=== PATIENT | female | born 1955 | race Caucasian/White ===

== ENCOUNTER 2017-11-09 11:15 | Observation (INO) ==
[2017-11-09] MEDS ORDERED: Aspirin 81 MG TAB.CHEW PO STA (11:45)
--- NOTE | 2017-11-09 11:51 | Emergency Department Note ---
Disposition Clinical Impression: Chest pain, Exertional dyspnea, Leg edema Disposition: Admitted As Inpatient Condition: Fair Time of Disposition: 14:35 General Adult HPI - General Chief complaint: ED Shortness of Breath/Dyspnea Stated complaint: TRACY,Lower extermity edema Time Seen by Provider: 11/09/17 11:29 Source: patient Mode of arrival: ambulatory Limitations: no limitations Nursing Notes Reviewed: Yes Vital Signs Reviewed: Yes - History of Present Illness HPI Narrative: 61-year-old female history of CAD s/p stent, hypertension, hyperlipidemia, current smoker presents an emergency department for difficulty breathing, leg swelling and feeling weak. His symptoms seem to be a worsening over the past 2 days. She attempted to lift her legs up and elevate them but the swelling appears to get worse. She reports dyspnea on exertion. Sometimes she experiences sharp pain in her midsternum that is nonradiating not always associated with exertion. She states the last only a few minutes and goes away. She denies any nausea or vomiting. She denies any recent illness fever or cough. She has not taken any of her medications today. She is seen to be hypertensive systolic 170 here. Takes lisinopril 40 mg daily. Denies history of blood clots. Denies any recent long-distance travel. No history of congestive heart failure that she is aware of. Pain Scale: 8 - Related Data Home Medications Medication Instructions Recorded Confirmed Albuterol Sulfate [Proair Hfa] 2 puff IH Q4-6H PRN 11/09/17 11/09/17 Gabapentin [Neurontin] 800 mg PO TID 11/09/17 11/09/17 Lisinopril [Zestril] 40 mg PO DAILY 11/09/17 11/09/17 OxyCODONE/APAP 5/325 [Percocet 1 tab PO TID PRN 11/09/17 11/09/17 5/325 MG] PARoxetine HCl [Paroxetine HCl] 40 mg PO DAILY 11/09/17 11/09/17 Allergies Allergy/AdvReac Type Severity Reaction Status Date / Time hydrocodone Allergy Severe Itching Verified 03/06/17 17:47 All systems ED: reviewed and negative except as stated. Review of Systems: As Per HPI Constitutional: Denies: fever, chills Cardiovascular: Reports: chest pain Respiratory: Reports: dyspnea. Denies: cough Gastrointestinal: Denies: abdominal pain, nausea, vomiting Genitourinary: Denies: urgency, dysuria Musculoskeletal: Denies: back pain, neck pain Integumentary: Denies: abrasion Neurological: Denies: headache, weakness Past Medical History - Past Medical History Attestation: Yes The following information was validated with the patient. Source: patient Medical history: Reports: cardiomyopathy, coronary artery disease, DVT, fibromyalgia, GERD, hepatitis, hypertension Surgical history: Reports: angioplasty/stent, cholecystectomy, hysterectomy, knee replacement, orthopedic, other, other Psychiatric history: Reports: anxiety, depression - Social History Smoking Status: Current every day smoker Smokeless Tobacco Status: No Alcohol use: Reports: none Drug use: Reports: none Physical Exam - General Limitations: no limitations General appearance: alert, in no apparent distress - Head Head exam: atraumatic, normocephalic, normal inspection - Eye Eye exam: Present: normal appearance, PERRL, EOMI - ENT ENT exam: normal exam, normal oropharynx, mucous membranes moist - Neck Neck exam: Present: normal inspection, full ROM, trachea midline - Chest Chest inspection: Present: normal inspection, symmetric chest wall rise - Respiratory Respiratory exam: Present: normal lung sounds bilaterally. Absent: respiratory distress, wheezes - Cardiovascular Cardiovascular exam: Present: regular rate, normal rhythm, normal heart sounds - Abdominal Exam Abdominal exam: Present: soft, Non-Tender, normal bowel sounds. Absent: tenderness, distention, guarding, rebound, rigidity - Extremities Exam Extremities exam: Present: normal inspection, full ROM, normal capillary refill , pedal edema (bilateral, symmetrical). Absent: tenderness - Neurological Exam Neurological exam: Present: alert, oriented X3 - Psychiatric Psychiatric exam: Present: normal affect, normal mood - Skin Skin exam: Present: warm, dry, intact, normal color. Absent: rash, cyanosis, diaphoresis Course - Reevaluation(s) Reevaluation #1: Patient continues to be slightly hypertensive here. She has not taken any of her whole medication. 40 mg lisinopril ordered. She continues to be slightly short of breath. Chest x-ray did not show any focal pneumonia or consolidation. Her labs or otherwise unremarkable. Given her symptoms of exertional dyspnea and now dyspnea at rest in swelling of the lower extremities will made her for evaluation for CHF exacerbation. Repeat EKG did not show any acute ischemic changes. There continues to be some nonspecific ST-T-wave changes. She would benefit with admission for further evaluation for chest pain and leg edema. Patient is agreeable to this plan. - Consultations Consultation #1: Spoke with on-call hospitalist coreen Ho to admit for chest pain, exertional dyspnea, and leg edema. Will check Albumin for swelling. Time: 14:35 Consultation #2: The hospitalist came down to evaluate the patient. She had notice may be some slight asymmetry of swelling to the lower extremity more so on the left and the right. Patient had initially reported no history of blood clots but now states she at one point may be had a filter as well as a stent placed due to a blood clot that extended from her belly down her groin. The hospitalist is currently requesting a venous Doppler ultrasound as well as the CT of the chest to evaluate for occlusion. A dose of Lovenox has been given prior to these images. Patient denies any G.I. bleed symptoms. The results will be followed up by the hospitalist. Patient will still require admission for her chest pain and leg swelling. Vital Signs Temperature 98.1 F 11/09/17 11:22 Pulse Rate 70 11/09/17 11:22 Respiratory Rate 16 11/09/17 11:22 Blood Pressure 172/95 11/09/17 11:22 O2 Sat by Pulse Oximetry 92 11/09/17 11:22 Temperature 98.7 F 11/09/17 19:03 Pulse Rate 70 11/09/17 19:03 Respiratory Rate 17 11/09/17 19:03 Blood Pressure 167/80 11/09/17 19:03 O2 Sat by Pulse Oximetry 95 11/09/17 19:03 Oxygen Delivery Oxygen Delivery Room Air Medical Decision Making - MDM Narrative Medical decision making narrative: Patient was discussed with my attending physician who agrees with ED management and final disposition. They independently evaluated the patient. Please refer to their attestation to this encounter for additional information. This note was generated by [employer] voice recognition software and as a result grammatical or spelling errors may occur using this program. - Medical Records Medical records reviewed: Yes I reviewed the patient's medical records. - Lab Data Lab results reviewed: Yes I reviewed the patient's lab results. Result diagrams: 11/09/17 11:46 11/09/17 11:46 Lab Results 11/09/17 11/09/17 11/09/17 Range/Units 11:42 11:46 11:46 WBC 8.2 (4.3-11.1) K/mcL RBC 4.20 (3.82-4.97) M/mcL Hgb 13.0 (11.5-15.4) g/dL Hct 38.5 (35.3-44.9) % MCV 91.7 (83.0-100.0) fL MCH 31.0 (28.0-33.3) pg MCHC 33.8 (31.6-35.5) g/dL RDW 12.3 (11.5-14.5) % Plt Count 239 (140-400) K/mcL MPV 11.0 (9.4-12.4) fL Immature Gran % 0.2 (0-4) % Seg Neutrophils % 59.1 % Lymphocytes % 26.7 % Monocytes % 9.6 % Eosinophils % 3.9 % Basophils % 0.5 % Neutrophils # 4.8 (1.6-8.9) K/mcL Lymphocytes # 2.2 (0.6-4.6) K/mcL Monocytes # 0.8 (0.0-1.3) K/mcL Eosinophils # 0.3 (0.0-0.6) K/mcL Basophils # 0.0 (0.0-0.2) K/mcL Sodium 139 (136-145) mEq/L Potassium 4.3 (3.5-5.1) mEq/L Chloride 108 H (98-107) mEq/L Carbon Dioxide 23 (23-29) mEq/L BUN 18 (8-23) mg/dL Creatinine 0.68 (0.60-1.20) mg/dL Est GFR ( Amer) > 60 (> 60) Est GFR (Non-Af Amer) > 60 (> 60) BUN/Creatinine Ratio 26 (6-26) Glucose 87 (70-105) mg/dL Calculated Osmolality 289 (280-300) Calcium 9.0 (8.6-10.3) mg/dL Total Bilirubin 0.3 (0.3-1.0) mg/dL Direct Bilirubin 0.0 (0.0-0.2) mg/dL Indirect Bilirubin 0.3 (0.0-1.2) mg/dL AST 20 (13-39) Units/L ALT 15 (7-52) Units/L Alkaline Phosphatase 82 (34-104) Units/L Troponin I < 0.03 (< 0.04) ng/mL B-Natriuretic Peptide (Less than 100) pg/mL Serum Total Protein 6.8 (6.4-8.9) g/dL Albumin 3.7 (3.5-5.7) g/dL Globulin 3.1 (2.4-3.5) g/dL Albumin/Globulin Ratio 1.2 (1.1-2.2) Lipase 5 L (11-82) Units/L Urine Color Yellow (Yellow) Urine Clarity Clear (Clear) Urine pH 6.0 (5.0-8.0) pH Units Ur Specific [place] 1.011 (1.010-1.025) Urine Protein Negative (Neg-Trace) mg/dL Urine Glucose (UA) Normal (Normal) mg/dL Urine Ketones Negative (Negative) mg/dL Urine Blood Negative (Negative) Urine Nitrite Negative (Negative) Urine Bilirubin Negative (Negative) Urine Urobilinogen Normal (Normal) mg/dL Ur Leukocyte Esterase Negative (Negative) Ur Culture Indicated? NO (NO) 11/09/17 Range/Units 11:46 WBC (4.3-11.1) K/mcL RBC (3.82-4.97) M/mcL Hgb (11.5-15.4) g/dL Hct (35.3-44.9) % MCV (83.0-100.0) fL MCH (28.0-33.3) pg MCHC (31.6-35.5) g/dL RDW (11.5-14.5) % Plt Count (140-400) K/mcL MPV (9.4-12.4) fL Immature Gran % (0-4) % Seg Neutrophils % % Lymphocytes % % Monocytes % % Eosinophils % % Basophils % % Neutrophils # (1.6-8.9) K/mcL Lymphocytes # (0.6-4.6) K/mcL Monocytes # (0.0-1.3) K/mcL Eosinophils # (0.0-0.6) K/mcL Basophils # (0.0-0.2) K/mcL Sodium (136-145) mEq/L Potassium (3.5-5.1) mEq/L Chloride (98-107) mEq/L Carbon Dioxide (23-29) mEq/L BUN (8-23) mg/dL Creatinine (0.60-1.20) mg/dL Est GFR ( Amer) (> 60) Est GFR (Non-Af Amer) (> 60) BUN/Creatinine Ratio (6-26) Glucose (70-105) mg/dL Calculated Osmolality (280-300) Calcium (8.6-10.3) mg/dL Total Bilirubin (0.3-1.0) mg/dL Direct Bilirubin (0.0-0.2) mg/dL Indirect Bilirubin (0.0-1.2) mg/dL AST (13-39) Units/L ALT (7-52) Units/L Alkaline Phosphatase (34-104) Units/L Troponin I (< 0.04) ng/mL B-Natriuretic Peptide 50 (Less than 100) pg/mL Serum Total Protein (6.4-8.9) g/dL Albumin (3.5-5.7) g/dL Globulin (2.4-3.5) g/dL Albumin/Globulin Ratio (1.1-2.2) Lipase (11-82) Units/L Urine Color (Yellow) Urine Clarity (Clear) Urine pH (5.0-8.0) pH Units Ur Specific [place] (1.010-1.025) Urine Protein (Neg-Trace) mg/dL Urine Glucose (UA) (Normal) mg/dL Urine Ketones (Negative) mg/dL Urine Blood (Negative) Urine Nitrite (Negative) Urine Bilirubin (Negative) Urine Urobilinogen (Normal) mg/dL Ur Leukocyte Esterase (Negative) Ur Culture Indicated? (NO) - Radiology Data Radiology results reviewed: Yes I reviewed the patient's radiology results. Chest X-Ray 11/09/17 11:30 IMPRESSION: 1. No active pulmonary disease. D/ / Jian Felix MD / Jian Felix MD Interpreting Provider: Jian Felix MD - EKG Data EKG #1 EKG attestation: Yes I reviewed and interpreted this EKG. EKG results narrative: EKG performed 1140 sinus rhythm 70 beats permanent, normal axis, good R wave progression, nonspecific ST T-wave changes mostly seen in V1 and V2. Intervals within normal limits. Findings appear consistent with prior EKG performed 03/11. No acute ischemic changes. No STEMI Repeat EKG performed 1330 normal sinus rhythm 61 bpm showed consistent nonspecific T-wave changes similar to prior EKG performed earlier. No acute ischemic changes. No dynamic changes at this time. Patient remains chest pain free.
[2017-11-09 12:01] LABS: Basophils % 0.5 %; Eosinophils # 0.3 K/mcL (0.0-0.6); Eosinophils % 3.9 %; Hematocrit 38.5 % (35.3-44.9); Immature Granulocytes % 0.2 % (0-4); Lymphocytes # 2.2 K/mcL (0.6-4.6); Lymphocytes % 26.7 %; Mean Corpuscular HGB Conc 33.8 g/dL (31.6-35.5); Mean Corpuscular Volume 91.7 fL (83.0-100.0); Monocytes # 0.8 K/mcL (0.0-1.3); Monocytes % 9.6 %; Neutrophils # 4.8 K/mcL (1.6-8.9); Platelet Count 239 K/mcL (140-400); Red Cell Distribution Width 12.3 % (11.5-14.5); Segmented Neutrophils % 59.1 %
[2017-11-09 12:18] LABS: Troponin I < 0.03 ng/mL (< 0.04)
[2017-11-09] MEDS: Acetaminophen 325 MG TABLET PO ONE ×2 (13:02→13:07)
[2017-11-09 13:07] LABS: BUN/Creatinine Ratio 26 (6-26); Blood Urea Nitrogen 18 mg/dL (8-23); Carbon Dioxide 23 mEq/L (23-29); Chloride 108 mEq/L (98-107); Glucose 87 mg/dL (70-105); Osmolality,Calculated 289 (280-300); Potassium 4.3 mEq/L (3.5-5.1); Sodium 139 mEq/L (136-145); eGFR For African Americans > 60 (> 60); eGFR For Non-African Americans > 60 (> 60)
[2017-11-09 13:39] LABS: Bilirubin,Urine Negative (Negative); Blood,Urine Negative (Negative); Clarity,Urine Clear (Clear); Color,Urine Yellow (Yellow); Glucose,Urine (UA) Normal (Normal); Ketones,Urine Negative (Negative); Leukocyte Esterase,Urine Negative (Negative); Nitrite,Urine Negative (Negative); Protein,Urine Negative (Neg-Trace); Specific Gravity,Urine 1.011 (1.010-1.025); Urobilinogen,Urine Normal (Normal)
[2017-11-09] MEDS ORDERED: Lisinopril 20 MG TABLET PO SCH (14:15)
--- NOTE | 2017-11-09 14:40 | Emergency Department Note ---
Disposition Clinical Impression: Exertional dyspnea, Leg edema Chest pain Qualifiers: Chest pain type: unspecified Qualified Code(s): R07.9 - Chest pain, unspecified Disposition: Admitted As Inpatient Condition: Fair Referrals: NONE,PCP [Primary Care Provider] - Time of Disposition: 14:00 General Adult HPI - General Chief complaint: ED Shortness of Breath/Dyspnea Stated complaint: TRACY,Lower extermity edema Time Seen by Provider: 11/09/17 11:29 Source: patient Mode of arrival: ambulatory Limitations: no limitations Nursing Notes Reviewed: Yes Vital Signs Reviewed: Yes - History of Present Illness Pain Scale: 8 - Related Data Home Medications Medication Instructions Recorded Confirmed Albuterol Sulfate [Proair Hfa] 2 puff IH Q4-6H PRN 11/09/17 11/09/17 Gabapentin [Neurontin] 800 mg PO TID 11/09/17 11/09/17 Lisinopril [Zestril] 40 mg PO DAILY 11/09/17 11/09/17 OxyCODONE/APAP 5/325 [Percocet 1 tab PO TID PRN 11/09/17 11/09/17 5/325 MG] PARoxetine HCl [Paroxetine HCl] 40 mg PO DAILY 11/09/17 11/09/17 Allergies Allergy/AdvReac Type Severity Reaction Status Date / Time hydrocodone Allergy Severe Itching Verified 03/06/17 17:47 Constitutional: Denies: fever, chills Cardiovascular: Reports: chest pain Respiratory: Reports: dyspnea. Denies: cough Gastrointestinal: Denies: abdominal pain, nausea, vomiting Genitourinary: Denies: urgency, dysuria Musculoskeletal: Denies: back pain, neck pain Integumentary: Denies: abrasion Neurological: Denies: headache, weakness Past Medical History - Past Medical History Medical history: Reports: cardiomyopathy, coronary artery disease, DVT, fibromyalgia, GERD, hepatitis, hypertension Surgical history: Reports: angioplasty/stent, cholecystectomy, hysterectomy, knee replacement, orthopedic, other, other Psychiatric history: Reports: anxiety, depression - Social History Smoking Status: Current every day smoker Smokeless Tobacco Status: No Alcohol use: Reports: none Drug use: Reports: none Physical Exam - General Limitations: no limitations General appearance: alert, in no apparent distress Course Vital Signs Temperature 98.1 F 11/09/17 11:22 Pulse Rate 70 11/09/17 11:22 Respiratory Rate 16 05/21/18 11:22 Blood Pressure 172/95 11/09/17 11:22 O2 Sat by Pulse Oximetry 92 11/09/17 11:22 Temperature 98.1 F 11/09/17 11:30 Pulse Rate 67 11/09/17 13:26 Respiratory Rate 16 11/09/17 13:26 Blood Pressure 174/98 11/09/17 13:26 O2 Sat by Pulse Oximetry 96 11/09/17 13:26 Oxygen Delivery Oxygen Delivery Room Air Medical Decision Making - Lab Data Result diagrams: 11/09/17 11:46 11/09/17 11:46 Lab Results 11/09/17 11/09/17 11/09/17 Range/Units 11:42 11:46 11:46 WBC 8.2 (4.3-11.1) K/mcL RBC 4.20 (3.82-4.97) M/mcL Hgb 13.0 (11.5-15.4) g/dL Hct 38.5 (35.3-44.9) % MCV 91.7 (83.0-100.0) fL MCH 31.0 (28.0-33.3) pg MCHC 33.8 (31.6-35.5) g/dL RDW 12.3 (11.5-14.5) % Plt Count 239 (140-400) K/mcL MPV 11.0 (9.4-12.4) fL Immature Gran % 0.2 (0-4) % Seg Neutrophils % 59.1 % Lymphocytes % 26.7 % Monocytes % 9.6 % Eosinophils % 3.9 % Basophils % 0.5 % Neutrophils # 4.8 (1.6-8.9) K/mcL Lymphocytes # 2.2 (0.6-4.6) K/mcL Monocytes # 0.8 (0.0-1.3) K/mcL Eosinophils # 0.3 (0.0-0.6) K/mcL Basophils # 0.0 (0.0-0.2) K/mcL Sodium 139 (136-145) mEq/L Potassium 4.3 (3.5-5.1) mEq/L Chloride 108 H (98-107) mEq/L Carbon Dioxide 23 (23-29) mEq/L BUN 18 (8-23) mg/dL Creatinine 0.68 (0.60-1.20) mg/dL Est GFR ( Amer) > 60 (> 60) Est GFR (Non-Af Amer) > 60 (> 60) BUN/Creatinine Ratio 26 (6-26) Glucose 87 (70-105) mg/dL Calculated Osmolality 289 (280-300) Calcium 9.0 (8.6-10.3) mg/dL Troponin I < 0.03 (< 0.04) ng/mL B-Natriuretic Peptide (Less than 100) pg/mL Urine Color Yellow (Yellow) Urine Clarity Clear (Clear) Urine pH 6.0 (5.0-8.0) pH Units Ur Specific [place] 1.011 (1.010-1.025) Urine Protein Negative (Neg-Trace) mg/dL Urine Glucose (UA) Normal (Normal) mg/dL Urine Ketones Negative (Negative) mg/dL Urine Blood Negative (Negative) Urine Nitrite Negative (Negative) Urine Bilirubin Negative (Negative) Urine Urobilinogen Normal (Normal) mg/dL Ur Leukocyte Esterase Negative (Negative) Ur Culture Indicated? NO (NO) 11/09/17 Range/Units 11:46 WBC (4.3-11.1) K/mcL RBC (3.82-4.97) M/mcL Hgb (11.5-15.4) g/dL Hct (35.3-44.9) % MCV (83.0-100.0) fL MCH (28.0-33.3) pg MCHC (31.6-35.5) g/dL RDW (11.5-14.5) % Plt Count (140-400) K/mcL MPV (9.4-12.4) fL Immature Gran % (0-4) % Seg Neutrophils % % Lymphocytes % % Monocytes % % Eosinophils % % Basophils % % Neutrophils # (1.6-8.9) K/mcL Lymphocytes # (0.6-4.6) K/mcL Monocytes # (0.0-1.3) K/mcL Eosinophils # (0.0-0.6) K/mcL Basophils # (0.0-0.2) K/mcL Sodium (136-145) mEq/L Potassium (3.5-5.1) mEq/L Chloride (98-107) mEq/L Carbon Dioxide (23-29) mEq/L BUN (8-23) mg/dL Creatinine (0.60-1.20) mg/dL Est GFR ( Amer) (> 60) Est GFR (Non-Af Amer) (> 60) BUN/Creatinine Ratio (6-26) Glucose (70-105) mg/dL Calculated Osmolality (280-300) Calcium (8.6-10.3) mg/dL Troponin I (< 0.04) ng/mL B-Natriuretic Peptide 50 (Less than 100) pg/mL Urine Color (Yellow) Urine Clarity (Clear) Urine pH (5.0-8.0) pH Units Ur Specific [place] (1.010-1.025) Urine Protein (Neg-Trace) mg/dL Urine Glucose (UA) (Normal) mg/dL Urine Ketones (Negative) mg/dL Urine Blood (Negative) Urine Nitrite (Negative) Urine Bilirubin (Negative) Urine Urobilinogen (Normal) mg/dL Ur Leukocyte Esterase (Negative) Ur Culture Indicated? (NO) Attestation Statement - Attestation Attestation: I, Miguel Rosales, examined this patient and my medical decision-making was reviewed with the [employer] MACHINE OPERATOR/PA/Advanced Practice Nurse/Resident Physician. I agree with the documented findings, disposition and treatment plan as described except to the extent set forth below. 61-year-old female presents emergency Department with concerns of difficulty in breathing, chest pain, lower extremity swelling. Patient states she has had increased swelling over the past 3 days of the bilateral lower extremities. Patient denies nausea, vomiting, diarrhea, vaginal bleeding or vaginal discharge. Chest pain is described as a tightness in the center of her chest that does not radiate occurs intermittently over the past few days. Patient denies syncopal event or. She reports increased shortness of breath with exertion over the past few days as well. Had an EKG which showed normal sinus rhythm with a rate of 61 without evidence of ischemia. Initial troponin was negative. Repeat EKG was unchanged. Patient will be admitted to hospitalist for further care and evaluation of her bilateral lower extremity swelling as well as her chest pain.
[2017-11-09] MEDS ORDERED: *HR* Enoxaparin 80 MG/0.8 ML SYRINGE SQ STA (15:19)
[2017-11-09] MEDS ORDERED: Isovue-370 500 ML INFUS..BTL IV ONE (15:23)
[2017-11-09 15:26] LABS: Alanine Aminotransferase 15 Units/L (7-52); Albumin 3.7 g/dL (3.5-5.7); Albumin/Globulin Ratio 1.2 (1.1-2.2); Alkaline Phosphatase 82 Units/L (34-104); Aspartate Amino Transferase 20 Units/L (13-39); Bilirubin,Indirect 0.3 mg/dL (0.0-1.2); Bilirubin,Total 0.3 mg/dL (0.3-1.0); Globulin 3.1 g/dL (2.4-3.5); Lipase 5 Units/L (11-82); Total Protein 6.8 g/dL (6.4-8.9)
--- NOTE | 2017-11-09 16:26 | Internal Med History&Physical ---
Date of Encounter: 11/09/17 Time of Encounter: 04:00 Internal Medicine - H&P: HPI Chief complaint: CP History of present illness: M 61-year-old female history of CAD s/p stent, hypertension, hyperlipidemia, current smoker presents an emergency department for progressive worsening difficulty breathing, leg swelling and eyes weakness . she also complaining of intermittent chest pain, sharp in character , nonradiating , worsening with exertion. She had history history of blood clots and IVC filter placement, when I evaluated the patient in the ER, I notice a slight asymmetry of swelling to the lower extremity more so on the left and the right. A venous Doppler ultrasound as well as the CT of the chest was requested to evaluate for occlusion. A dose of Lovenox has been given prior to these images. The patient was admitted for further Past Med Surg Social Fam HX - Past Medical History Medical history: cardiomyopathy, coronary artery disease, DVT, fibromyalgia, GERD, hepatitis, hypertension Psychiatric history: anxiety, depression - Past Surgical History Surgical History: angioplasty/stent, cholecystectomy, hysterectomy, knee replacement, orthopedic, other, other - Social History Smoking Status: Current every day smoker Smokeless Tobacco Status: No Alcohol use: none Drug use: none Internal Medicine - H&P: Meds Gabapentin [Neurontin] 800 mg PO TID 11/09/17 [History] Lisinopril [Zestril] 40 mg PO DAILY 11/09/17 [History] OxyCODONE/APAP 5/325 [Percocet 5/325 MG] 1 tab PO TID PRN 11/09/17 [History] PARoxetine HCl [Paroxetine HCl] 40 mg PO DAILY 11/09/17 [History] Albuterol Sulfate [Proair Hfa] 2 puff IH Q4-6H PRN #1 [email or web address] 11/11/17 [Rx] Furosemide [Lasix] 20 mg PO DAILY #7 tablet 11/11/17 [Rx] 3 Allergy/AdvReac Type Severity Reaction Status Date / Time hydrocodone Allergy Severe Itching Verified 03/06/17 17:47 All Systems PM: A 10-system review of systems was performed and is negative for pertinent findings except as documented above in the HPI. - Constitutional Constitutional: weakness, no chills, no fever(s), no night sweats - Cardiovascular Cardiovascular ROS IM: chest pain, dyspnea on exertion, edema, no diaphoresis, no dyspnea, no lightheadedness, no palpitations, no syncope - Respiratory Respiratory: no cough, no dyspnea, no wheezing, no excessive phlegm production - Gastrointestinal Gastrointestinal: no abdominal pain, no diarrhea, no hematemesis, no hematochezia, no melena, no nausea, no vomiting - Neurological Neurological ROS: no confusion, no convulsions, no focal weakness, no numbness, no tingling, no tremor(s) - Constitutional Vitals: Temp Pulse Resp BP Pulse Ox 98.1 F 59 18 180/101 96 11/09/17 11:30 11/09/17 13:26 11/09/17 13:26 11/09/17 13:26 11/09/17 13:26 General appearance: Present: A&O X 3 - Head Head exam: Present: atraumatic, normocephalic - Neck Neck exam general surgery: Present: supple, trachea midline. Absent: lymphadenopathy - Respiratory Respiratory exam: Present: CTAB. Absent: accessory muscle use, rales, rhonchi, wheezes - Cardiovascular Cardiovascular exam: Present: RRR, +S1, +S2. Absent: diastolic murmur, gallop, rubs, systolic murmur - GI/Abdominal GI/Abdominal exam: Present: normal bowel sounds, soft, no peritoneal signs. Absent: distended, tenderness - Extremities Exam Extremities exam: Present: pedal edema, warm, radial pulses palpable and symmetrical. Absent: calf tenderness, cyanotic Internal Med - H&P Results - Labs CBC & Chem 7: 11/11/17 07:02 11/11/17 07:02 - Assessment and plan (1) Dyspnea on exertion Status: Acute Assessment and plan: - Chest pain and progressive worsening of lower extremity edema associated to his dyspnea on exertion DD * CHF * PE *CAD *Muskuloskeletal CP - myofascial strain, costochondritis *Pneumonia - no infiltrate on CXR CAD Risk ([place] all that apply): HTN Obesity PVD LDL FMH DM HDL Smoking Age Sedentary PLAN: - Starting lasix - cardiac enzymes x 2 q 8 hr - EKG now and in AM - ASA - O2 by NC to keep SpO2 greater than 92% - UA - CBCD, BMP in AM - Fasting lipids - Tylenol 650 mg PO q 4-6 hr PRN headache - Home meds (check list) - Heparin 5000 U SQ BID - 2D Echo - Cardiology consult (2) Chest pain Status: Acute Assessment and plan: ASSESSMENT: - Chest pain and progressive worsening of lower extremity edema associated to his dyspnea on exertion DD * CHF * PE *CAD *Muskuloskeletal CP - myofascial strain, costochondritis *Pneumonia - no infiltrate on CXR CAD Risk ([place] all that apply): HTN Obesity PVD LDL FMH DM HDL Smoking Age Sedentary PLAN: - Starting lasix - cardiac enzymes x 2 q 8 hr - EKG now and in AM - ASA - O2 by NC to keep SpO2 greater than 92% - UA - CBCD, BMP in AM - Fasting lipids - Tylenol 650 mg PO q 4-6 hr PRN headache - Home meds (check list) - Heparin 5000 U SQ BID - 2D Echo - Cardiology consult Qualifiers: Chest pain type: unspecified Qualified Code(s): R07.9 - Chest pain, unspecified (3) Hypertension Status: Chronic Assessment and plan: uncontrolled, we'll continue home medication, continue to monitor blood pressure while inpatient and adjust regimen accordingly Qualifiers: Hypertension type: essential hypertension Qualified Code(s): I10 - Essential (primary) hypertension (4) Hepatitis C Status: Chronic Qualifiers: Viral hepatitis chronicity: chronic Hepatic coma status: without hepatic coma Qualified Code(s): B18.2 - Chronic viral hepatitis C (5) Neuralgia and neuritis Status: Chronic Assessment and plan: we will continue home medications (6) DVT prophylaxis Status: Acute Assessment and plan: the patient status post therapeutic dose of Lovenox in the ER for possible DVT (7) Leg edema Status: Acute Assessment and plan: left more than the right, rule out DVT, we will obtain Doppler ultrasound, CTA of chest, the patient received therapeutic doses of Lovenox in the ER. - Time Spent With Patient Total time spent is greater than 50% in coordination of care (as documented) at patient's floor/unit and/or counseling patient:
[2017-11-09] MEDS ORDERED: *HR* FentaNYL (PF) 100 MCG/2 ML VIAL IVP ONE (16:35)
[2017-11-09] MEDS ORDERED: Naloxone 0.4 MG/ML INJ IVP PRN (18:19)
[2017-11-09] MEDS: *HR* OxyCODONE/APAP 5/325 TABLET PO PRN (18:20)
[2017-11-09] MEDS ORDERED: traZODone 50 MG TABLET PO ONE (19:57)
[2017-11-09] MEDS: Gabapentin 400 MG CAPSULE PO SCH (21:05)
[2017-11-10] MEDS: *HR* OxyCODONE/APAP 5/325 TABLET PO PRN ×4 (03:53→20:40)
[2017-11-10] MEDS: Ondansetron 4 MG/2 ML VIAL IVP PRN ×3 (03:54→17:33)
[2017-11-10] MEDS: *HR* Heparin 5,000 UNIT/ML VIAL SQ SCH ×2 (05:25→17:33)
[2017-11-10 08:10] LABS: Basophils % 0.6 %; Eosinophils # 0.3 K/mcL (0.0-0.6); Hematocrit 40.4 % (35.3-44.9); Hemoglobin 13.3 g/dL (11.5-15.4); Immature Granulocytes % 0.2 % (0-4); Lymphocytes # 2.1 K/mcL (0.6-4.6); Lymphocytes % 40.2 %; Mean Corpuscular HGB Conc 32.9 g/dL (31.6-35.5); Mean Corpuscular Hemoglobin 29.5 pg (28.0-33.3); Mean Corpuscular Volume 89.6 fL (83.0-100.0); Mean Platelet Volume 11.4 fL (9.4-12.4); Monocytes # 0.6 K/mcL (0.0-1.3); Monocytes % 10.7 %; Neutrophils # 2.3 K/mcL (1.6-8.9); Platelet Count 213 K/mcL (140-400); Red Blood Count 4.51 M/mcL (3.82-4.97); Red Cell Distribution Width 12.3 % (11.5-14.5); Segmented Neutrophils % 42.3 %
[2017-11-10 08:18] LABS: Prothrombin Time 10.9 Seconds (9.4-12.1)
[2017-11-10 08:30] LABS: Alanine Aminotransferase 16 Units/L (7-52); Albumin 3.5 g/dL (3.5-5.7); Albumin/Globulin Ratio 1.1 (1.1-2.2); Alkaline Phosphatase 72 Units/L (34-104); Aspartate Amino Transferase 25 Units/L (13-39); BUN/Creatinine Ratio 23 (6-26); Bilirubin,Total 0.4 mg/dL (0.3-1.0); Blood Urea Nitrogen 16 mg/dL (8-23); Calcium 9.1 mg/dL (8.6-10.3); Carbon Dioxide 22 mEq/L (23-29); Chloride 109 mEq/L (98-107); Chol/HDL Ratio 2.2 (0-4.9); Cholesterol 148 mg/dL (< 200); Globulin 3.2 g/dL (2.4-3.5); Glucose 84 mg/dL (70-105); HDL Cholesterol 68 mg/dL (40-59); LDL Cholesterol,Calculated 61 mg/dL (0-99); Magnesium 1.9 mg/dL (1.6-2.6); Osmolality,Calculated 286 (280-300); Potassium 4.2 mEq/L (3.5-5.1); Sodium 138 mEq/L (136-145); Total Protein 6.7 g/dL (6.4-8.9); Triglycerides 95 mg/dL (< 150); eGFR For African Americans > 60 (> 60); eGFR For Non-African Americans > 60 (> 60)
[2017-11-10] MEDS: Lisinopril 20 MG TABLET PO SCH (08:42)
[2017-11-10] MEDS: Gabapentin 400 MG CAPSULE PO SCH ×3 (08:43→20:39)
[2017-11-10] MEDS: Furosemide 40 MG/4 ML VIAL IVP SCH ×2 (08:43→17:33)
[2017-11-10 09:19] LABS: Troponin I < 0.03 ng/mL (< 0.04)
--- NOTE | 2017-11-10 09:36 | Electrocardiograph Report ---
[facility] [employer] Test Date: 2017-11-09 Pat Name: Cesia Ridley Department: 102 Room: 3B13 Gender: F Content Specialist: Valeria : 1955 Requested By: Rashid Carson Order Number: [id number] Reading MD: John Paul Campoverde Measurements Intervals [place] Rate: 70 P: 54 [place]: 132 QRS: 47 QRSD: 87 T: 68 QT: 412 QTc: 432 Interpretive Statements SINUS RHYTHM SEPTAL MYOCARDIAL INFARCTION [40+ ms Q WAVE IN V1/V2], OF INDETERMINATE AGE Electronically Signed On 11-10-2017 7:18:46 EDT by John Paul Campoverde
--- NOTE | 2017-11-10 09:36 | Electrocardiograph Report ---
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
[2017-11-10] MEDS ORDERED: *HR* LORazepam 0.5 MG TABLET PO ONE (10:07)
--- NOTE | 2017-11-10 19:53 | Internal Med Progress Note ---
Date of Encounter: 11/10/17 Time of Encounter: 13:00 - Assessment and plan (1) Chest pain Current Visit: Yes Status: Acute Assessment and plan: Intermittent chest pain sharp nonradiating at time with worsening lower extremity edema associated symptoms of dyspnea on exertion. We will continue with Lasix cardiac troponins are negative 2 Continue with aspirin Echo with EF of 60% mild left ventricular diastolic dysfunction normal right ventricular structure and function mild mitral regurgitation and pulmonary hypertension Discussed case with cardiology recommending stress test at this time consult as needed A Qualifiers: Chest pain type: unspecified Qualified Code(s): R07.9 - Chest pain, unspecified (2) Hepatitis C Current Visit: No Status: Chronic Assessment and plan: Per history of hepatic panel stable at this time Qualifiers: Viral hepatitis chronicity: chronic Hepatic coma status: without hepatic coma Qualified Code(s): B18.2 - Chronic viral hepatitis C (3) DVT prophylaxis Current Visit: No Status: Acute Assessment and plan: Heparin subcutaneous (4) Neuralgia and neuritis Current Visit: No Status: Chronic Assessment and plan: we will continue home medications (5) Hypertension Current Visit: No Status: Chronic Assessment and plan: uncontrolled, we'll continue home medication, continue to monitor blood pressure while inpatient and adjust regimen accordingly- Qualifiers: Hypertension type: essential hypertension Qualified Code(s): I10 - Essential (primary) hypertension (6) Leg edema Current Visit: Yes Status: Acute Assessment and plan: left more than the right, rule out DVT, Doppler negative CTA of chest, negative for pulmonary embolus Continue with Lasix Albumin is normal Cardiac echo with mild diastolic dysfunction (7) Dyspnea on exertion Current Visit: Yes Status: Acute Assessment and plan: - Echo with mild diastolic dysfunction CTA negative for PE No infiltrate on chest x-ray Patient will undergo cardiac stress test and reticulocyte enzymes are negative EKG with no acute changes Oxygen as needed Patient did undergo 6 minute walk tolerated well and maintain oxygen saturation - Time Spent With Patient Total time spent is greater than 50% in coordination of care (as documented) at patient's floor/unit and/or counseling patient: - Subjective Interval history: Patient has intermediate clinical markers. I did examine patient bedside. Patient does express a lot of anxiety concern about lower extremity swelling. She also expressed a lot of concerning care of her grandson since she is her primary caregiver. I did consult social group worker. We discussed stress test which she agreed. She denies any chest pain or shortness of breath at this time. She has been ambulating without any difficulty - Constitutional Vitals: Temp Pulse Resp BP Pulse Ox 98.8 F 75 16 150/89 95 11/10/17 19:07 11/10/17 19:07 11/10/17 19:07 11/10/17 19:07 11/10/17 19:07 General appearance: Present: A&O X 3 - Head Head exam: Present: atraumatic, normocephalic - Eye Eye exam: Present: PERRL, conjuntiva pink, sclera anicteric Pupils: Present: PERRL - Neck Neck exam general surgery: Present: supple, trachea midline. Absent: lymphadenopathy - Respiratory Respiratory exam: Present: CTAB. Absent: accessory muscle use, rales, rhonchi, wheezes - Cardiovascular Cardiovascular exam: Present: RRR, +S1, +S2. Absent: diastolic murmur, gallop, rubs, systolic murmur - GI/Abdominal GI/Abdominal exam: Present: normal bowel sounds, soft, no peritoneal signs. Absent: distended, tenderness - Extremities Exam Extremities exam: Present: pedal edema, warm, radial pulses palpable and symmetrical. Absent: calf tenderness, cyanotic - Neurological Exam Neurological exam: Present: CN II-XII intact, oriented X3, no focal deficits. Absent: pronater drift, facial droop, speech deficit - Skin Skin exam: Present: dry, intact Internal Medicine: Result - Labs CBC & Chem 7: 11/10/17 07:49 11/10/17 07:49 Labs: Short CBC 11/10/17 Range/Units 07:49 WBC 5.3 (4.3-11.1) K/mcL Hgb 13.3 (11.5-15.4) g/dL Hct 40.4 (35.3-44.9) % Plt Count 213 (140-400) K/mcL Neutrophils # 2.3 (1.6-8.9) K/mcL BMP 11/10/17 07:49 Sodium 138 Potassium 4.2 Chloride 109 H Carbon Dioxide 22 L BUN 16 Creatinine 0.71 Glucose 84 Calcium 9.1 Cardiac Enzymes 11/10/17 11/10/17 Range/Units 00:44 07:49 Troponin I < 0.03 < 0.03 (< 0.04) ng/mL Liver Function 11/10/17 Range/Units 07:49 Total Bilirubin 0.4 (0.3-1.0) mg/dL AST 25 (13-39) Units/L ALT 16 (7-52) Units/L Alkaline Phosphatase 72 (34-104) Units/L Albumin 3.5 (3.5-5.7) g/dL - ABG Interpretation ABG results: PT/INR, D-dimer PT 10.9 Seconds (9.4-12.1) 11/10/17 07:49 - Impressions Impressions Echocardiogram 11/09/17 18:26 Impressions: LVEF 60%. Mild left ventricular diastolic dysfunction. Normal right ventricular structure and function. Mild mitral regurgitation. No pulmonary hypertension. Left Ventricular Wall Motion: Rest Echo Findings All wall segments showed normal motion. Findings: Study Quality * Technically adequate exam. ECG Findings * Normal sinus rhythm. Left Ventricle * LVEF 60%. * Normal LV chamber size, wall thickness and function. * Mild left ventricular diastolic dysfunction. Right Ventricle * Normal right ventricular structure and function. Left Atrium * Normal left atrial size. Right Atrium * Normal right atrial size. Mitral Valve * Normal mitral valve structure. * No mitral stenosis. * Mitral subvalvular calcification. * Mild mitral regurgitation. Aortic Valve * No aortic regurgitation. * Aortic valve not well visualized. * No aortic stenosis. Tricuspid Valve * Tricuspid valve not well visualized. * Trace tricuspid regurgitation. * Estimated RA pressure is 3 mmHg. * Estimated RVSP is 26 mmHg. * No pulmonary hypertension. Pulmonic Valve * Pulmonic valve is not well visualized. * No pulmonic stenosis. * No pulmonic regurgitation. Pulmonary Artery * Pulmonary artery not well visualized. Aorta * Normally sized aortic root. Pericardium * There is no pericardial effusion present. Interatrial Septum * No evidence of PFO by color Doppler. IVC * Normal IVC dimensions and inspiratory collapse. Consult Discharge Plan - Plan Referrals: Tisha Cervantes MD [Non-Partnered Physician] - 11/11/17 3:00 pm
[2017-11-11] MEDS: *HR* OxyCODONE/APAP 5/325 TABLET PO PRN ×2 (03:19→10:10)
[2017-11-11] MEDS: Ondansetron 4 MG/2 ML VIAL IVP PRN (03:21)
[2017-11-11] MEDS ORDERED: Regadenoson 0.4 MG/5 ML SYRINGE IVP ONE (05:33)
[2017-11-11] MEDS: *HR* Heparin 5,000 UNIT/ML VIAL SQ SCH (06:17)
[2017-11-11] MEDS ORDERED: *HR* LORazepam 2 MG/ML VIAL IVP ONE (06:29)
[2017-11-11 07:58] LABS: BUN/Creatinine Ratio 22 (6-26); Blood Urea Nitrogen 21 mg/dL (8-23); Calcium 9.5 mg/dL (8.6-10.3); Carbon Dioxide 34 mEq/L (23-29); Chloride 101 mEq/L (98-107); Glucose 92 mg/dL (70-105); Osmolality,Calculated 293 (280-300); Potassium 3.9 mEq/L (3.5-5.1); Sodium 140 mEq/L (136-145); eGFR For African Americans > 60 (> 60); eGFR For Non-African Americans > 60 (> 60)
[2017-11-11 08:24] LABS: Basophils % 0.3 %; Eosinophils # 0.3 K/mcL (0.0-0.6); Eosinophils % 5.5 %; Hematocrit 41.3 % (35.3-44.9); Hemoglobin 13.8 g/dL (11.5-15.4); Immature Granulocytes % 0.2 % (0-4); Lymphocytes # 2.6 K/mcL (0.6-4.6); Lymphocytes % 43.2 %; Mean Corpuscular HGB Conc 33.4 g/dL (31.6-35.5); Mean Corpuscular Hemoglobin 30.1 pg (28.0-33.3); Mean Corpuscular Volume 90.2 fL (83.0-100.0); Mean Platelet Volume 11.2 fL (9.4-12.4); Monocytes # 0.7 K/mcL (0.0-1.3); Monocytes % 11.2 %; Neutrophils # 2.4 K/mcL (1.6-8.9); Platelet Count 278 K/mcL (140-400); Red Blood Count 4.58 M/mcL (3.82-4.97); Red Cell Distribution Width 12.3 % (11.5-14.5); Segmented Neutrophils % 39.6 %
[2017-11-11] MEDS: Gabapentin 400 MG CAPSULE PO SCH (10:10)
[2017-11-11] MEDS: Lisinopril 20 MG TABLET PO SCH (10:10)
[2017-11-11] MEDS: Furosemide 40 MG/4 ML VIAL IVP SCH (10:11)
--- NOTE | 2017-11-11 10:19 | Discharge Summary ---
- NOTES TO OUTPATIENT PROVIDER Notes to Outpatient Provider: Placed on low dose lasix for lower extremity swelling, monitor chem 7. Recommend outpatient pulmonolgy follow up- COPD workup - Had cardiac stress with no ischemia/infarct Orders not resulted at time of discharge: Pending orders 11/10/17 19:49 NM juana perf SPECT multi [NM] Routine Date of Encounter: 11/11/17 Time of Encounter: 10:13 - Discharge Diagnosis (1) Chest pain Priority: Primary Status: Acute Qualifiers: Chest pain type: unspecified Qualified Code(s): R07.9 - Chest pain, unspecified (2) Hepatitis C Priority: Secondary Status: Chronic Qualifiers: Viral hepatitis chronicity: chronic Hepatic coma status: without hepatic coma Qualified Code(s): B18.2 - Chronic viral hepatitis C (3) Neuralgia and neuritis Priority: Secondary Status: Chronic (4) Hypertension Priority: Secondary Status: Chronic Qualifiers: Hypertension type: essential hypertension Qualified Code(s): I10 - Essential (primary) hypertension (5) Leg edema Priority: Primary Status: Acute (6) Dyspnea on exertion Priority: Primary Status: Acute Hospital course: Ms. Ridley is a 61 year old female PMH of cardiomyopathy CAD DVT fibromyalgia GERD hepatitis HTN. Patient resented to the ED with complaints of intermitten chest pain sharp in character nonradiating worse on exertion, lower extremity swelling and SOB. She has a hx of blood clots and IVC filter placement , venous doppler obtained negative for DVT. CTA was negative for PE. She does smoke however has not been dx with COPD. She ambulated in halls without difficulty and passed 6 min walk test. Spo2 range from 92-96% on RA. I did review case with cardiology who advised cardiac stress test. She underwent cardiac stress test which was negative for ischemia or infarct. echo with EF 60 % with diastolic dysfunction Normal right ventricualr structure and function no pulmonary HTN no mitral regugitation. She was given Lasix for edema , which did improve edema. Advised patient to elevate feet and to wear compression stockings. Lab work including hepatic panel WNL. I reveiwed case with DR Mccarthy, who advised OK for discharge and to have patient follow up with PCP. Patient is to folow up with and sent patient home with prescription of low dose Lasix . Advise patient to have lab work checked with PCP in a few days to check potassium. She verbalized understanding. She is hemodynamically stable and ready for discharge - Time Spent with Patient Total time spent providing and/or coordinating discharge services: - Discharge Medications Prescriptions: Albuterol Sulfate [Proair Hfa] 2 puff IH Q4-6H PRN #1 hfa.aer.ad PRN Reason: Dyspnea Furosemide [Lasix] 20 mg PO DAILY #7 tablet Home Medications: Gabapentin [Neurontin] 800 mg PO TID 11/09/17 [History] Lisinopril [Zestril] 40 mg PO DAILY 11/09/17 [History] OxyCODONE/APAP 5/325 [Percocet 5/325 MG] 1 tab PO TID PRN 11/09/17 [History] PARoxetine HCl [Paroxetine HCl] 40 mg PO DAILY 11/09/17 [History] Albuterol Sulfate [Proair Hfa] 2 puff IH Q4-6H PRN #1 hfa.aer.ad 11/11/17 [Rx] Furosemide [Lasix] 20 mg PO DAILY #7 tablet 11/11/17 [Rx] Allergies/Adverse Reactions: 3 Allergy/AdvReac Type Severity Reaction Status Date / Time hydrocodone Allergy Severe Itching Verified 03/06/17 17:47 Date of admission: 11/09/17 18:19 Primary care physician: PCP NONE Discharging clinician: Jacinda Chavez Anticipated date of discharge: 11/11/17 - Constitutional Vitals: Temp Pulse Resp BP Pulse Ox 97.9 F 67 17 127/78 92 11/11/17 08:57 11/11/17 08:57 11/11/17 08:57 11/11/17 08:57 11/11/17 08:57 General appearance: Present: A&O X 3 - Head Head exam: Present: atraumatic, normocephalic - Eye Eye exam: Present: PERRL, conjuntiva pink, sclera anicteric Pupils: Present: PERRL - Neck Neck exam general surgery: Present: supple, trachea midline. Absent: lymphadenopathy - Respiratory Respiratory exam: Present: CTAB. Absent: accessory muscle use, rales, rhonchi, wheezes - Cardiovascular Cardiovascular exam: Present: RRR, +S1, +S2. Absent: diastolic murmur, gallop, rubs, systolic murmur - GI/Abdominal GI/Abdominal exam: Present: normal bowel sounds, soft, no peritoneal signs. Absent: distended, tenderness - Extremities Exam Extremities exam: Present: warm, radial pulses palpable and symmetrical. Absent : calf tenderness, cyanotic, pedal edema - Neurological Exam Neurological exam: Present: CN II-XII intact, oriented X3, no focal deficits. Absent: pronater drift, facial droop, speech deficit - Skin Skin exam: Present: dry, intact - Patient Status Disposition: Home, Self-Care Condition: Fair Functional capacity at discharge: independent ambulation Overall status at discharge: patient is back to baseline - Discharge Instructions Instructions: Chest Pain (DC) Follow Up With: [facility] [Provider Group] - 11/12/17 9:15 am Tisha Cervantes MD [Non-Partnered Physician] - 11/13/17 3:00 pm - Diet and Activity Activity: resume usual activities as tolerated Diet: low salt diet
[2017-11-11 10:59] VITALS: BP 136/84
--- NOTE | 2017-11-11 20:26 | Electrocardiograph Report ---
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
== END 2017-11-11 11:25 | disposition home or self-care (01) ==
LOC: EMEROO 11:15 → 3BNU 11:15
PROVIDERS: ADMIT Internal Medicine Nephrology; ATTEND Internal Medicine Nephrology

== ENCOUNTER 2018-03-18 17:48 | Observation (INO) ==
[2018-03-18 18:42] LABS: Basophils % 0.3 %; Eosinophils # 0.3 K/mcL (0.0-0.6); Eosinophils % 3.5 %; Hematocrit 40.9 % (35.3-44.9); Hemoglobin 13.7 g/dL (11.5-15.4); Immature Granulocytes % 0.3 % (0-4); Lymphocytes # 2.8 K/mcL (0.6-4.6); Lymphocytes % 37.8 %; Mean Corpuscular HGB Conc 33.5 g/dL (31.6-35.5); Mean Corpuscular Hemoglobin 29.4 pg (28.0-33.3); Mean Corpuscular Volume 87.8 fL (83.0-100.0); Mean Platelet Volume 10.9 fL (9.4-12.4); Monocytes # 0.7 K/mcL (0.0-1.3); Monocytes % 9.5 %; Neutrophils # 3.6 K/mcL (1.6-8.9); Platelet Count 252 K/mcL (140-400); Red Blood Count 4.66 M/mcL (3.82-4.97); Red Cell Distribution Width 12.3 % (11.5-14.5); Segmented Neutrophils % 48.6 %
[2018-03-18 19:03] LABS: BUN/Creatinine Ratio 21 (6-26); Blood Urea Nitrogen 15 mg/dL (8-23); Calcium 9.5 mg/dL (8.6-10.3); Carbon Dioxide 26 mEq/L (23-29); Chloride 108 mEq/L (98-107); Glucose 87 mg/dL (70-105); Osmolality,Calculated 290 (280-300); Potassium 4.1 mEq/L (3.5-5.1); Sodium 140 mEq/L (136-145); Troponin I < 0.03 ng/mL (< 0.04); eGFR For Non-African Americans > 60 (> 60)
--- NOTE | 2018-03-18 19:34 | Emergency Department Note ---
Disposition Clinical Impression: Shortness of breath Chest pain Qualifiers: Chest pain type: unspecified Qualified Code(s): R07.9 - Chest pain, unspecified Hypertension Qualifiers: Hypertension type: essential hypertension Qualified Code(s): I10 - Essential ( primary) hypertension Disposition: Admitted As Inpatient Condition: Fair General Adult HPI - General Chief complaint: ED Shortness of Breath/Dyspnea Stated complaint: Chest tightness,TRACY,Ankle swelling Time Seen by Provider: 03/18/18 17:59 Source: patient Limitations: no limitations Nursing Notes Reviewed: Yes Vital Signs Reviewed: Yes - History of Present Illness HPI Narrative: The patient does have chest pain which is a tightness and began last night and is constant and is not worse with exertion but she does have associated shortness of breath and this is with exertion. Positive diaphoresis. No radiation. No pleuritic aspect. No pain or swelling of the lower extremities. She says she has had a lobectomy in the past. Social history: Smoker, no alcohol or drugs Pain Scale: 8 - Related Data Home Medications Medication Instructions Recorded Confirmed Gabapentin [Neurontin] 800 mg PO TID 11/09/17 11/09/17 Lisinopril [Zestril] 40 mg PO DAILY 11/09/17 11/09/17 OxyCODONE/APAP 5/325 [Percocet 1 tab PO TID PRN 11/09/17 11/09/17 5/325 MG] PARoxetine HCl [Paroxetine HCl] 40 mg PO DAILY 11/09/17 11/09/17 Previous Rx's Medication Instructions Recorded Albuterol Sulfate [Proair Hfa] 2 puff IH Q4-6H PRN #1 hfa.aer.ad 11/11/17 Furosemide [Lasix] 20 mg PO DAILY #7 tablet 11/11/17 Malathion [Ovide] 59 ml TP DAILY #1 lotion 01/11/18 Allergies Allergy/AdvReac Type Severity Reaction Status Date / Time hydrocodone Allergy Severe Itching Verified 01/11/18 18:09 Review of Systems: Constitutional: No fever Vision: No blurred vision ENT: No rhinorrhea Respiratory: No cough Allergic: No allergies : No blood in urine GI: No blood in stool Hematologic: No bruising Dermatologic: No skin rash Musculoskeletal: No pain in the extremities Neuro: No numbness of the extremities Past Medical History - Past Medical History Medical history: Reports: DVT, hypertension, other Surgical history: Reports: angioplasty/stent, cholecystectomy, hysterectomy, knee replacement, orthopedic, other, other Psychiatric history: Reports: anxiety, depression - Social History Smoking Status: Current some day smoker Smokeless Tobacco Status: No Alcohol use: Reports: none Drug use: Reports: none Physical Exam CONSTITUTIONAL: Well-appearing; well-nourished; A&O X 3, in no apparent distress HEAD: Normocephalic; atraumatic EYES: PERRL, no scleral icterus NOSE: The nose is normal in appearance without rhinorrhea NECK: No JVD or distended neck veins RESP: Normal chest excursion with respiration; breath sounds with scattered minimal wheeze CARD: Regular rhythm, without murmurs, rub or gallop ABD: Non-distended; non-tender, soft, without rigidity, rebound or guarding,no pulsatile mass CHEST: No pain with palpation SKIN: Normal for age and race; warm and dry without diaphoresis ; no apparent lesions EXTREMITIES: Pulses are 2 plus and equal times 4 extremities, no peripheral edema or calf muscle pain - General Limitations: no limitations General appearance: alert, in no apparent distress Course Vital Signs Temperature 97.4 F L 03/18/18 17:50 Pulse Rate 75 03/18/18 17:50 Respiratory Rate 20 03/18/18 17:50 Blood Pressure 203/112 03/18/18 17:50 O2 Sat by Pulse Oximetry 99 03/18/18 17:50 Temperature 97.4 F L 03/18/18 18:25 Pulse Rate 64 03/18/18 20:32 Respiratory Rate 17 03/18/18 20:32 Blood Pressure 176/105 03/18/18 20:32 O2 Sat by Pulse Oximetry 98 03/18/18 20:32 Oxygen Delivery Oxygen Delivery Room Air Medical Decision Making - MDM Narrative Medical decision making narrative: I did review the patient's labs and the patient does not have elevated troponin , BNP or d-dimer. I do not feel that she has CHF or aortic dissection or pulmonary embolism however she does have on her EKG normal sinus rhythm with a rate of 72 but does have T-wave inversion aVL however this was present in the past however also has very minimal ST depression in V5 and V6 and since these are all lateral leads I will go ahead and have the patient admitted to the hospital. She does have chronic low back pain which is identical to her past pain has not taken her Percocet today so I will give her 2 Percocet as she typically takes 10 mg for her pain. Chest x-ray without acute abnormality. The patient will be admitted to the hospital. I will also repeat her EKG. 1933. I did review the patient's test results. The blood pressure will be repeated. The patient received aspirin and 1% of Nitropaste.. The dyspnea has resolved but her chest pain has been constant since last night and is still present. Repeat EKG will be repeated. Patient has been accepted for admission by the hospitalist. 1944 The patient has been accepted for admission by the hospitalist. Blood pressures rechecked and has decreased by about 20 points. I will also give a dose of lisinopril to hopefully decrease the blood pressure even further. In addition the patient does have nitroglycerin paste which may decrease it even little bit more 2000 Patient did have a repeat EKG which is almost identical in appearance showing normal sinus rhythm with a rate of [address] depression laterally and T-wave inversion in lead aVL 2053 - Medical Records Medical records reviewed: Yes I reviewed the patient's medical records. - Lab Data Lab results reviewed: Yes I reviewed the patient's lab results. Result diagrams: 03/18/18 18:23 03/18/18 18:23 Lab Results 03/18/18 03/18/18 03/18/18 Range/Units 18:23 18:23 18:23 WBC 7.4 (4.3-11.1) K/mcL RBC 4.66 (3.82-4.97) M/mcL Hgb 13.7 (11.5-15.4) g/dL Hct 40.9 (35.3-44.9) % MCV 87.8 (83.0-100.0) fL MCH 29.4 (28.0-33.3) pg MCHC 33.5 (31.6-35.5) g/dL RDW 12.3 (11.5-14.5) % Plt Count 252 (140-400) K/mcL MPV 10.9 (9.4-12.4) fL Immature Gran % 0.3 (0-4) % Seg Neutrophils % 48.6 % Lymphocytes % 37.8 % Monocytes % 9.5 % Eosinophils % 3.5 % Basophils % 0.3 % Neutrophils # 3.6 (1.6-8.9) K/mcL Lymphocytes # 2.8 (0.6-4.6) K/mcL Monocytes # 0.7 (0.0-1.3) K/mcL Eosinophils # 0.3 (0.0-0.6) K/mcL Basophils # 0.0 (0.0-0.2) K/mcL D-Dimer (0-500) ng/mLFEU Sodium 140 (136-145) mEq/L Potassium 4.1 (3.5-5.1) mEq/L Chloride 108 H (98-107) mEq/L Carbon Dioxide 26 (23-29) mEq/L BUN 15 (8-23) mg/dL Creatinine 0.73 (0.60-1.20) mg/dL Est GFR ( Amer) > 60 (> 60) Est GFR (Non-Af Amer) > 60 (> 60) BUN/Creatinine Ratio 21 (6-26) Glucose 87 (70-105) mg/dL Calculated Osmolality 290 (280-300) Calcium 9.5 (8.6-10.3) mg/dL Troponin I < 0.03 (< 0.04) ng/mL B-Natriuretic Peptide 49 (Less than 100) pg/mL 03/18/18 Range/Units 18:23 WBC (4.3-11.1) K/mcL RBC (3.82-4.97) M/mcL Hgb (11.5-15.4) g/dL Hct (35.3-44.9) % MCV (83.0-100.0) fL MCH (28.0-33.3) pg MCHC (31.6-35.5) g/dL RDW (11.5-14.5) % Plt Count (140-400) K/mcL MPV (9.4-12.4) fL Immature Gran % (0-4) % Seg Neutrophils % % Lymphocytes % % Monocytes % % Eosinophils % % Basophils % % Neutrophils # (1.6-8.9) K/mcL Lymphocytes # (0.6-4.6) K/mcL Monocytes # (0.0-1.3) K/mcL Eosinophils # (0.0-0.6) K/mcL Basophils # (0.0-0.2) K/mcL D-Dimer 308 (0-500) ng/mLFEU Sodium (136-145) mEq/L Potassium (3.5-5.1) mEq/L Chloride (98-107) mEq/L Carbon Dioxide (23-29) mEq/L BUN (8-23) mg/dL Creatinine (0.60-1.20) mg/dL Est GFR ( Amer) (> 60) Est GFR (Non-Af Amer) (> 60) BUN/Creatinine Ratio (6-26) Glucose (70-105) mg/dL Calculated Osmolality (280-300) Calcium (8.6-10.3) mg/dL Troponin I (< 0.04) ng/mL B-Natriuretic Peptide (Less than 100) pg/mL - Radiology Data Radiology results reviewed: Yes I reviewed the patient's radiology results.
[2018-03-18] MEDS ORDERED: Aspirin 325 MG TABLET PO ONE (19:42)
[2018-03-18] MEDS ORDERED: Nitroglycerin 1 INCH/GM PACKET TP ONE (19:42)
[2018-03-18] MEDS ORDERED: *HR* OxyCODONE/APAP 5/325 TABLET PO ONE (19:42)
[2018-03-18] MEDS ORDERED: Lisinopril 20 MG TABLET PO STA (20:01)
--- NOTE | 2018-03-18 20:46 | Internal Med History&Physical ---
Date of Encounter: 03/18/18 Time of Encounter: 20:43 Internal Medicine - H&P: HPI Chief complaint: Chest pain Admitted From: Home Plans for Post Hospital Care: Home History of present illness: Ms. Ridley is a 62-year-old woman with a history of hypertension, coronary artery disease with stent placement and venous thromboembolic disease who previously had an IVC filter since removed and is no longer on anticoagulation, right middle lobectomy in the past who presents to the ER with a complaint of chest tightness for a few days accompanied by increasing shortness of breath with dyspnea on exertion. She has also noticed some swelling around her left ankle in addition to a sensation of congestion in her chest. She states to me that she has not been taking any of her medications for the past 2-3 weeks stating that she ran out. On arrival to the ER she was found to have a blood pressure of 211/118 mmHg. She was given loading dose of aspirin and Nitropaste as well. Lab work was grossly unremarkable and EKG reviewed independently by me showed a normal sinus rhythm with minimal ST-T segment depressions in the lateral leads. She was given 1 dose of oral lisinopril 20 mg. At this time she states her chest pain has improved, describing it previously as a tightness and pressure sensation over her precordium. Past Med Surg Social Fam HX - Past Medical History Medical history: DVT, hypertension, other Additional medical history: vagal episodes, biliary colic, PUD, severe deg arthropathy Psychiatric history: anxiety, depression - Past Surgical History Surgical History: angioplasty/stent, cholecystectomy, hysterectomy, knee replacement, orthopedic, other, other Additional surgical history: lobectomy - Social History Smoking Status: Current some day smoker Smokeless Tobacco Status: No Alcohol use: none Drug use: none Internal Medicine - H&P: Meds Gabapentin [Neurontin] 800 mg PO TID 11/09/17 [History] Lisinopril [Zestril] 40 mg PO DAILY 11/09/17 [History] OxyCODONE/APAP 5/325 [Percocet 5/325 MG] 1 tab PO TID PRN 11/09/17 [History] PARoxetine HCl [Paroxetine HCl] 40 mg PO DAILY 11/09/17 [History] Albuterol Sulfate [Proair Hfa] 2 puff IH Q4-6H PRN #1 hfa.aer.ad 11/11/17 [Rx] Furosemide [Lasix] 20 mg PO DAILY #7 tablet 11/11/17 [Rx] Malathion [Ovide] 59 ml TP DAILY #1 lotion 01/11/18 [Rx] 3 Allergy/AdvReac Type Severity Reaction Status Date / Time hydrocodone Allergy Severe Itching Verified 01/11/18 18:09 All Systems PM: A 10-system review of systems was performed and is negative for pertinent findings except as documented above in the HPI. - Constitutional Vitals: Temp Pulse Resp BP Pulse Ox 97.4 F L 64 17 176/105 98 03/18/18 18:25 03/18/18 20:32 03/18/18 20:32 03/18/18 20:32 03/18/18 20:32 Exam: Vitals: Reviewed General: Well-developed female lying comfortably in bed in no acute distress Skin: Warm and supple HEENT: Moist mucous membranes. No conjunctivae pallor. Neck: No lymphadenopathy. No JVD. No carotid bruits. No palpable thyroid. Chest: Normal thoracic expansion. No wheezing, rales or rhonchi. Diminished breath sounds in the bases. Heart: Normal S1 & S2; rhythmic. No rubs or murmurs. Abdomen: Non-distended, soft and non-tender to palpation. No peritoneal reaction. Extremities: No clubbing, cyanosis. Trace pedal edema. No calf tenderness. Normal distal pulses. Neurological: Awake, alert and oriented to person, place and time. No focal deficits. Psych: Affect appropriate. Internal Med - H&P Results - Labs CBC & Chem 7: 03/18/18 18:23 03/18/18 18:23 Labs: Short CBC 03/18/18 Range/Units 18:23 WBC 7.4 (4.3-11.1) K/mcL Hgb 13.7 (11.5-15.4) g/dL Hct 40.9 (35.3-44.9) % Plt Count 252 (140-400) K/mcL Neutrophils # 3.6 (1.6-8.9) K/mcL BMP 03/18/18 18:23 Sodium 140 Potassium 4.1 Chloride 108 H Carbon Dioxide 26 BUN 15 Creatinine 0.73 Glucose 87 Calcium 9.5 Cardiac Enzymes 03/18/18 Range/Units 18:23 Troponin I < 0.03 (< 0.04) ng/mL - Impressions ITS Impressions Chest X-Ray 03/18/18 18:01 IMPRESSION: Stable chest x-ray including stable postsurgical changes in the right hemithorax. No acute cardiopulmonary disease. D/ / Michael Ryan MD / Michael Ryan MD Interpreting Provider: Michael Ryan MD - Assessment and plan (1) Dyspnea on exertion Current Visit: Yes Status: Acute Assessment and plan: Possibly related to myocardial strain from her hypertensive urgency state. D- dimer is unremarkable and therefore less likely PE. He is also not hypoxic and tachycardic which would otherwise have been suggestive. Seems to have improved with blood pressure control. We will also resume her diuretic therapy to ease the congestion. Patient had a stress test and echo done less than 4 months ago. (2) Chest pain Current Visit: Yes Status: Acute Assessment and plan: As stated above it is likely related to myocardial strain however she has significant risk factors for ongoing CAD therefore it would be prudent to observe her overnight, keep her on telemetry, repeat EKG as needed and trend a set of troponin still morning to ensure there is no acute disease occurring. Should resume aspirin and statin therapy. Echo and stress test done less than 4 months ago which were grossly unremarkable. Follow-up with cardiology as an outpatient. Qualifiers: Chest pain type: precordial pain Qualified Code(s): R07.2 - Precordial pain (3) Hypertensive urgency Current Visit: Yes Status: Acute Assessment and plan: Due to nonadherence to medications. Will resume lisinopril 40mg and start amlodipine for additional control of this stage 2 HTN. Low salt diet advised. (4) History of DVT (deep vein thrombosis) Current Visit: Yes Status: Acute Assessment and plan: The patient has not been on anticoagulation for many years. Currently without signs of acute DVT. IVC filter reportedly removed. (5) History of pneumonectomy Current Visit: Yes Status: Chronic Assessment and plan: Unclear reason; perhaps is related to thromboembolism. No signs of pulmonary hypertension however on last echo done. (6) Tobacco abuse Current Visit: Yes Status: Chronic Assessment and plan: Counseled extensively on her pack a day habit. Resources made available. (7) Coronary artery disease Current Visit: Yes Status: Chronic Assessment and plan: Unclear why she is not on antiplatelet therapy. She says she was previously on clopidogrel but has been off for many years. Will start ASA and statin therapy. Currently stable. Qualifiers: Coronary Disease-Associated Artery/Lesion type: [place] artery [place] vs. transplanted heart: [place] heart Associated angina: with unspecified angina Qualified Code(s): I25.119 - Atherosclerotic heart disease of [place] coronary artery with unspecified angina pectoris (8) DVT prophylaxis Current Visit: Yes Status: Acute Assessment and plan: Subcutaneous heparin ordered. - Time Spent With Patient Total time spent is greater than 50% in coordination of care (as documented) at patient's floor/unit and/or counseling patient: Greater than 35 minutes
[2018-03-18] MEDS: *HR* Heparin 5,000 UNIT/ML VIAL SQ SCH (21:46)
[2018-03-18] MEDS: Gabapentin 400 MG CAPSULE PO SCH (21:47)
[2018-03-18] MEDS ORDERED: *HR* Promethazine 25 MG/ML VIAL IVP ONE (22:47)
[2018-03-18] MEDS ORDERED: Ketorolac 15 MG/ML VIAL IVP ONE (23:09)
[2018-03-18] MEDS ORDERED: Isovue-370 500 ML INFUS..BTL IV ONE (23:10)
[2018-03-18] MEDS ORDERED: *HR* LORazepam 2 MG/ML VIAL IVP ONE (23:11)
[2018-03-18] MEDS: *HR* OxyCODONE/APAP 5/325 TABLET PO PRN (23:33)
[2018-03-19] MEDS: *HR* Heparin 5,000 UNIT/ML VIAL SQ SCH (05:19)
[2018-03-19] MEDS: Gabapentin 400 MG CAPSULE PO SCH (08:32)
[2018-03-19] MEDS: *HR* OxyCODONE/APAP 5/325 TABLET PO PRN (08:32)
[2018-03-19] MEDS ORDERED: Lisinopril 20 MG TABLET PO SCH (09:00)
[2018-03-19] MEDS ORDERED: amLODIPine 5 MG TABLET PO SCH (09:00)
[2018-03-19] MEDS ORDERED: Aspirin 81 MG TAB.CHEW PO SCH (09:00)
[2018-03-19] MEDS ORDERED: Furosemide 20 MG TABLET PO SCH (09:00)
--- NOTE | 2018-03-19 10:43 | Discharge Summary ---
- NOTES TO OUTPATIENT PROVIDER Notes to Outpatient Provider: Patient was admitted for complains of SOB, associated with HTN Urgency, no end organ damage on exam. She had run out of her blood pressure meds, 2 weeks prior to presentation. She made improvement in symptoms with resumption of her home meds. She has no neurologic deficits, and trop negative with no EKG changes, follow up with PCP and compliance with meds reinforced. Date of Encounter: 03/19/18 Time of Encounter: 10:43 - Discharge Diagnosis (1) Coronary artery disease Priority: Secondary Status: Chronic Qualifiers: Coronary Disease-Associated Artery/Lesion type: [place] artery [place] vs. transplanted heart: [place] heart Associated angina: with unspecified angina Qualified Code(s): I25.119 - Atherosclerotic heart disease of [place] coronary artery with unspecified angina pectoris (2) DVT prophylaxis Priority: Primary Status: Resolved (3) History of DVT (deep vein thrombosis) Priority: Secondary Status: Chronic (4) History of pneumonectomy Priority: Secondary Status: Chronic (5) Tobacco abuse Priority: Secondary Status: Chronic (6) Chest pain Priority: Primary Status: Acute Qualifiers: Chest pain type: unspecified Qualified Code(s): R07.9 - Chest pain, unspecified (7) Dyspnea on exertion Priority: Primary Status: Acute (8) Hypertensive urgency Priority: Primary Status: Resolved Hospital course: Ms. Ridley is a 62 year old female with a history of hypertension, coronary artery disease with stent placement and venous thromboembolic disease who previously had an IVC filter since removed and is no longer on anticoagulation, right middle lobectomy in the past who presented to the ER with a complaint of chest tightness for a few days accompanied by increasing shortness of breath with dyspnea on exertion. She has also noticed some swelling around her left ankle in addition to a sensation of congestion in her chest. She had been non- compliant with her medications. Work up in ER showed blood pressure of 211/118 mmHg. She was given loading dose of aspirin and Nitropaste as well. Lab work was grossly unremarkable and EKG reviewed independently by me showed a normal sinus rhythm with minimal ST-T segment depressions in the lateral leads. She was given 1 dose of oral lisinopril 20 mg with improvement in symptoms. Troponin was negative X3 D-dimer is unremarkable, CTA ruled out PE, she was not hypoxic and tachycardic throughout hosp stay. Echo and stress test done less than 4 months ago which were grossly unremarkable. Patient was seen and examined this a.m with verification of same hx, as above, and complains of generalized weakness. She has been stable clinically and ambulatory without any focal deficits She is educated about her diagnosis of HTN Urgency and importance of compliance with meds, appointments 3 mins spent on education about tobacco cessation. No significant exam findings, patient's Vitals are stable and she is discharged home on current medications Follow up with PCP Discharge discussed with: patient, case management Time spent discussing smoking cessation with patient: 3 to 10 minutes - Time Spent with Patient Total time spent providing and/or coordinating discharge services: Less than 30 minutes - Discharge Medications Prescriptions: Albuterol Sulfate [Proair Hfa] 2 puff IH Q4-6H PRN #1 hfa.aer.ad PRN Reason: Dyspnea amLODIPine [Norvasc] 10 mg PO DAILY #60 tablet Aspirin 81 mg PO DAILY #30 tab.chew Atorvastatin [Lipitor] 20 mg PO HS #30 tablet Furosemide [Lasix] 20 mg PO DAILY #20 tablet Lisinopril [Zestril] 40 mg PO DAILY #30 tablet Home Medications: Gabapentin [Neurontin] 800 mg PO TID 11/09/17 [History] OxyCODONE/APAP 5/325 [Percocet 5/325 MG] 1 tab PO TID PRN 11/09/17 [History] PARoxetine HCl [Paroxetine HCl] 40 mg PO DAILY 11/09/17 [History] Malathion [Ovide] 59 ml TP DAILY #1 lotion 01/11/18 [Rx] Albuterol Sulfate [Proair Hfa] 2 puff IH Q4-6H PRN #1 hfa.aer.ad 03/19/18 [Rx] Aspirin 81 mg PO DAILY #30 tab.chew 03/19/18 [Rx] Atorvastatin [Lipitor] 20 mg PO HS #30 tablet 03/19/18 [Rx] Furosemide [Lasix] 20 mg PO DAILY #20 tablet 03/19/18 [Rx] Lisinopril [Zestril] 40 mg PO DAILY #30 tablet 03/19/18 [Rx] amLODIPine [Norvasc] 10 mg PO DAILY #60 tablet 03/19/18 [Rx] Allergies/Adverse Reactions: 3 Allergy/AdvReac Type Severity Reaction Status Date / Time hydrocodone Allergy Severe Itching Verified 01/11/18 18:09 Date of admission: 03/18/18 20:43 Primary care physician: PCP NONE Discharging clinician: Jose Enriquez Anticipated date of discharge: 03/19/18 - Constitutional Vitals: Temp Pulse Resp BP Pulse Ox 98.1 F 70 17 122/77 95 03/19/18 07:50 03/19/18 07:50 03/19/18 07:50 03/19/18 07:50 03/19/18 07:50 General appearance: Present: A&O X 3, pleasant, no acute distress Exam: see exam - Head Head exam: Present: atraumatic, normocephalic - Eye Eye exam: Present: PERRL, conjuntiva pink, sclera anicteric Pupils: Present: PERRL - Neck Neck exam general surgery: Present: supple, trachea midline. Absent: lymphadenopathy - Respiratory Respiratory exam: Present: decreased breath sounds (RLL), CTAB. Absent: accessory muscle use, rales, rhonchi, wheezes - Cardiovascular Cardiovascular exam: Present: RRR, +S1, +S2. Absent: diastolic murmur, gallop, rubs, systolic murmur - GI/Abdominal GI/Abdominal exam: Present: normal bowel sounds, soft, no peritoneal signs. Absent: distended, tenderness - Extremities Exam Extremities exam: Present: warm, radial pulses palpable and symmetrical. Absent : calf tenderness, cyanotic, pedal edema - Neurological Exam Neurological exam: Present: CN II-XII intact, oriented X3, no focal deficits. Absent: pronater drift, facial droop, speech deficit - Skin Skin exam: Present: dry, intact - Patient Status Disposition: Home, Self-Care Condition: Good Functional capacity at discharge: independent ambulation Overall status at discharge: patient is back to baseline - Discharge Instructions Follow Up With: NONE,PCP [Primary Care Provider] - Additional Instructions: Establish a PCP/Family doctor, stay compliant with your medications, follow up with your family doctor - Diet and Activity Activity: resume usual activities as tolerated Diet: low fat, low cholesterol, low salt diet
[2018-03-19 11:11] VITALS: BP 138/81
[2018-03-19] MEDS ORDERED: Ondansetron ODT 4 MG TAB.RAPDIS SL ONE (11:32)
--- NOTE | 2018-03-21 21:43 | Electrocardiograph Report ---
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
--- NOTE | 2018-03-21 21:45 | Electrocardiograph Report ---
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
--- NOTE | 2018-03-21 21:51 | Electrocardiograph Report ---
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
== END 2018-03-19 12:48 | disposition home or self-care (01) ==
LOC: 2ANU 17:48 → EMEROOARM 17:48 → 2ANU 21:28
PROVIDERS: ADMIT Internal Medicine; ATTEND Internal Medicine

== ENCOUNTER 2020-12-25 13:26 | Observation (INO) ==
[2020-12-25] MEDS ORDERED: *HR* LORazepam 2 MG/ML VIAL IVP ONE (14:05)
[2020-12-25 14:33] LABS: Basophils % 0.3 %; Eosinophils # 0.1 K/mcL (0.0-0.6); Hematocrit 42.4 % (35.3-44.9); Hemoglobin 13.5 g/dL (11.5-15.4); Immature Granulocytes % 0.3 % (0-4); Lymphocytes # 4.3 K/mcL (0.6-4.6); Lymphocytes % 33.5 %; Mean Corpuscular HGB Conc 31.8 g/dL (31.6-35.5); Mean Corpuscular Hemoglobin 29.5 pg (28.0-33.3); Mean Corpuscular Volume 92.6 fL (83.0-100.0); Monocytes # 0.8 K/mcL (0.0-1.3); Monocytes % 5.8 %; Neutrophils # 7.6 K/mcL (1.6-8.9); Platelet Count 321 K/mcL (140-400); Red Blood Count 4.58 M/mcL (3.82-4.97); Red Cell Distribution Width 12.5 % (11.5-14.5); Segmented Neutrophils % 59.1 %; White Blood Count 12.9 K/mcL (4.3-11.1)
[2020-12-25 14:53] LABS: Activated Partial Thrombo Time 28.4 Seconds (26.0-36.0)
[2020-12-25 14:56] LABS: Alanine Aminotransferase 17 Units/L (7-52); Albumin 4.3 g/dL (3.5-5.7); Albumin/Globulin Ratio 1.3 (1.1-2.2); Alkaline Phosphatase 95 Units/L (34-104); Aspartate Amino Transferase 21 Units/L (13-39); BUN/Creatinine Ratio 15 (6-26); Bilirubin,Direct 0.1 mg/dL (0.0-0.2); Bilirubin,Indirect 0.3 mg/dL (0.0-1.0); Bilirubin,Total 0.4 mg/dL (0.3-1.0); Blood Urea Nitrogen 14 mg/dL (8-23); Calcium 9.3 mg/dL (8.6-10.3); Carbon Dioxide 20 mEq/L (23-29); Chloride 103 mEq/L (98-107); Creatine Kinase 58 Units/L (30-223); Ethanol < 10 mg/dL (Less than 10); Globulin 3.4 g/dL (2.4-3.5); Glucose 175 mg/dL (70-105); Osmolality,Calculated 291 (280-300); Potassium 3.5 mEq/L (3.5-5.1); Sodium 138 mEq/L (136-145); Total Protein 7.7 g/dL (6.4-8.9); Troponin I < 0.03 ng/mL (< 0.04); eGFR For African Americans > 60 (> 60); eGFR For Non-African Americans 60 (> 60)
[2020-12-25 15:10] LABS: Thyroid Stimulating Hormone 3.559 mcIU/mL (0.340-5.600)
[2020-12-25 17:05] LABS: Bilirubin,Urine Negative (Negative); Blood,Urine Negative (Negative); Clarity,Urine Clear (Clear); Color,Urine Light-Yellow (Yellow); Glucose,Urine (UA) 50 mg/dL (Normal); Ketones,Urine Negative (Negative); Leukocyte Esterase,Urine Negative (Negative); Nitrite,Urine Negative (Negative); Protein,Urine 70 mg/dL (Neg-Trace); RBC,Urine 0-3 per hpf (0-3); Specific Gravity,Urine 1.016 (1.010-1.025); Squamous Epithelial Cell,Urine Few per hpf (None-Few); Urobilinogen,Urine Normal (Normal); WBC,Urine 0-3 per hpf (0-3)
[2020-12-25] MEDS ORDERED: *HR* Labetalol 20 MG/4 ML SYRINGE IVP ONE (17:10)
[2020-12-25] MEDS ORDERED: Ondansetron 4 MG/2 ML VIAL IVP PRN (17:11)
[2020-12-25] MEDS ORDERED: Gabapentin 400 MG CAPSULE PO ONE (17:11)
[2020-12-25] MEDS ORDERED: Naloxone 0.4 MG/ML INJ IVP PRN (17:11)
[2020-12-25 17:18] LABS: Amphetamine Screen,Urine Positive ng/mL (Cutoff=1000); Barbiturate Screen,Urine Negative ng/mL (Cutoff=200); Benzodiazepines Screen,Urine Negative ng/mL (Cutoff=200); Cannabinoid Screen,Urine Positive ng/mL (Cutoff = 50); Cocaine Screen,Urine Negative ng/mL (Cutoff= 300); Opiate Screen,Urine Negative ng/mL (Cutoff=300); Phencyclidine Screen,Urine Negative ng/mL (Cutoff=25)
[2020-12-25] MEDS ORDERED: Perflutren Lipid Microsphere 1.3 ML in 0.9 % Sodium Chloride 8.7 ML IVP PRN (17:25)
[2020-12-25] MEDS: 0.9 % Sodium Chloride 1,000 ML IVC SCH (18:46)
[2020-12-25] MEDS: *HR* Heparin 5,000 UNIT/ML VIAL SQ SCH (19:39)
[2020-12-25] MEDS: *HR* Labetalol 20 MG/4 ML SYRINGE IVP PRN (19:44)
[2020-12-25] MEDS: *HR* LORazepam 2 MG/ML VIAL IVP PRN (21:14)
[2020-12-26] MEDS: 0.9 % Sodium Chloride 1,000 ML IVC SCH (04:06)
[2020-12-26] MEDS: *HR* Heparin 5,000 UNIT/ML VIAL SQ SCH ×3 (05:08→19:46)
[2020-12-26 06:05] LABS: Basophils % 0.6 %; Eosinophils # 0.3 K/mcL (0.0-0.6); Eosinophils % 4.7 %; Hematocrit 35.6 % (35.3-44.9); Immature Granulocytes % 0.2 % (0-4); Lymphocytes # 2.7 K/mcL (0.6-4.6); Lymphocytes % 40.9 %; Mean Corpuscular Hemoglobin 29.6 pg (28.0-33.3); Mean Corpuscular Volume 92.5 fL (83.0-100.0); Mean Platelet Volume 10.6 fL (9.4-12.4); Monocytes # 0.6 K/mcL (0.0-1.3); Monocytes % 9.4 %; Neutrophils # 2.9 K/mcL (1.6-8.9); Platelet Count 213 K/mcL (140-400); Red Blood Count 3.85 M/mcL (3.82-4.97); Red Cell Distribution Width 12.5 % (11.5-14.5); Segmented Neutrophils % 44.2 %; White Blood Count 6.6 K/mcL (4.3-11.1)
[2020-12-26 06:06] LABS: Hemoglobin 11.4 g/dL (11.5-15.4)
[2020-12-26 06:26] LABS: BUN/Creatinine Ratio 16 (6-26); Blood Urea Nitrogen 12 mg/dL (8-23); Calcium 8.3 mg/dL (8.6-10.3); Carbon Dioxide 24 mEq/L (23-29); Chloride 107 mEq/L (98-107); Glucose 114 mg/dL (70-105); Osmolality,Calculated 289 (280-300); Potassium 3.4 mEq/L (3.5-5.1); Sodium 139 mEq/L (136-145); eGFR For African Americans > 60 (> 60); eGFR For Non-African Americans > 60 (> 60)
[2020-12-26] MEDS: *HR* LORazepam 2 MG/ML VIAL IVP PRN ×3 (08:53→21:35)
[2020-12-26] MEDS: *HR* OxyCODONE/APAP 5/325 TABLET PO PRN ×2 (13:48→23:40)
[2020-12-26] MEDS: *HR* Labetalol 20 MG/4 ML SYRINGE IVP PRN (13:56)
[2020-12-26] MEDS ORDERED: Nicotine 2 MG GUM BC PRN (19:13)
[2020-12-26] MEDS ORDERED: Nicotine 21 MG PATCH.TD24 TD SCH (19:15)
[2020-12-26] MEDS: Gabapentin 300 MG CAPSULE PO SCH (19:46)
[2020-12-26] MEDS ORDERED: traZODone 50 MG TABLET PO SCH (21:00)
[2020-12-27] MEDS: *HR* Labetalol 20 MG/4 ML SYRINGE IVP PRN ×2 (03:35→10:40)
[2020-12-27] MEDS: *HR* Heparin 5,000 UNIT/ML VIAL SQ SCH (05:16)
[2020-12-27 05:48] LABS: BUN/Creatinine Ratio 20 (6-26); Blood Urea Nitrogen 14 mg/dL (8-23); Calcium 8.8 mg/dL (8.6-10.3); Carbon Dioxide 23 mEq/L (23-29); Chloride 109 mEq/L (98-107); Glucose 109 mg/dL (70-105); Magnesium 1.9 mg/dL (1.6-2.6); Osmolality,Calculated 289 (280-300); Phosphorous 3.6 mg/dL (2.7-4.5); Potassium 3.4 mEq/L (3.5-5.1); Sodium 139 mEq/L (136-145); eGFR For African Americans > 60 (> 60); eGFR For Non-African Americans > 60 (> 60)
[2020-12-27] MEDS ORDERED: amLODIPine 5 MG TABLET PO SCH (09:00)
[2020-12-27] MEDS ORDERED: lisinopriL 20 MG TABLET PO SCH (09:00)
[2020-12-27] MEDS ORDERED: NON-FORMULARY MEDICATION 1 EACH EACH (Losartan Potassium [Cozaar] 50 MG Tablet) PO SCH (09:00)
[2020-12-27] MEDS ORDERED: PARoxetine 20 MG TABLET PO SCH (09:00)
[2020-12-27] MEDS: *HR* LORazepam 2 MG/ML VIAL IVP PRN (10:39)
[2020-12-27] MEDS: *HR* OxyCODONE/APAP 5/325 TABLET PO PRN (10:39)
[2020-12-27] MEDS: Gabapentin 300 MG CAPSULE PO SCH (10:39)
[2020-12-27] MEDS ORDERED: hydrALAZINE 25 MG TABLET PO SCH (12:05)
[2020-12-27 13:21] VITALS: BP 136/84
[2020-12-27] MEDS ORDERED: lamoTRIgine 25 MG TABLET PO SCH (21:00)
== END 2020-12-27 14:25 | disposition home or self-care (01) ==
LOC: 3BNU 13:26 → EMEROOARM 13:26 → SUATTDRO 17:37 → 3BNU 18:24
PROVIDERS: ADMIT Internal Medicine; ATTEND Internal Medicine